=== PATIENT | male | born 1985 | race Caucasian/White ===

== ENCOUNTER 2017-02-11 16:53 | Emergency (ER) | payer OTHER ==
[2017-02-11 17:06] VITALS: BP 124/76
--- NOTE | 2017-02-11 17:11 | UC ---
Laceration HPI - HPI Summary HPI Summary: 31 YEAR OLD MALE PRESENTS WITH LEFT KNEE LACERATION SECONDARY KNEELING ON CERAMIC. - History Of Current Complaint Chief Complaint: UCLaceration Stated Complaint: KNEE LACERATION Time Seen by Provider: 02/11/17 17:07 - Allergies/Home Medications Allergies/Adverse Reactions: Allergies Allergy/AdvReac Type Severity Reaction Status Date / Time No Known Allergies Allergy Verified 02/11/17 17:02 Home Medications: Home Medications Diazepam TAB(*) [Valium TAB(*)] 10 mg PO Q8H PRN 02/11/17 [History Confirmed ] Naproxen TAB* [Naprosyn 250 mg TAB*] 500 mg PO Q8H 02/11/17 [History Confirmed 02/11/17] oxyCODONE/Acetamin 5/325 MG* [Percocet 5/325 TAB*] 1 tab PO BID PRN 02/11/17 [ History Confirmed 02/11/17] PMH/Surg Hx/FS Hx/Imm Hx - Surgical History Surgical History: Yes Surgery Procedure, Year, and Place: L knee surgeries - Social History Alcohol Use: None Substance Use Type: None Smoking Status (MU): Never Smoked Tobacco Review of Systems Constitutional: Negative Skin: Other - LEFT KNEE LACERATION Eyes: Negative ENT: Negative Respiratory: Negative Cardiovascular: Negative Gastrointestinal: Negative Genitourinary: Negative Motor: Negative Neurovascular: Negative Musculoskeletal: Negative Neurological: Negative Psychological: Negative All Other Systems Reviewed And Are Negative: Yes Physical Exam Triage Information Reviewed: Yes Vital Signs: Initial Vital Signs Temp 36.7 C 02/11/17 17:04 Pulse 73 02/11/17 17:04 Resp 12 02/11/17 17:04 BP 124/76 02/11/17 17:04 Pulse Ox 98 02/11/17 17:04 Laceration Repair - Laceration Repair 1 Description: Irregular Laceration Size After Repair: Length (cm) - 5 TO 7.5 CM Contamination/FB Removal: NO Modified For Repair: No Type Injection: Local Anesthesia Used: 1.0% Lido Cleansing Completed Via Routine Prep: Yes Closure Material: Sutures - # 7 Closure Method: Single Layer Suture Of: Skin Suture Type: Nylon - 4 Laceration Course/Dx - Differential Dx - Laceration/Wound Provider Diagnoses: LEFT KNEE LACERATION Discharge - Discharge Plan Condition: Stable Disposition: HOME Prescriptions: Sulfamethox/Trimethoprim DS* [Bactrim DS 800/160 TAB*] 1 tab PO BID #20 tab Patient Education Materials: Laceration (ED) Referrals: Deangelo STEARNS,Jose R Rai [Primary Care Provider] - 2 Days
[2017-02-11] MEDS ORDERED: Lidocaine 1% MPF* 2 ML VIAL INJ ONE (17:14)
[2017-02-11] MEDS ORDERED: Lidocaine 1% MPF* 2 ML VIAL ONE (17:29)
== END 2017-02-11 17:51 | disposition home or self-care (01) ==
LOC: UCEAST 16:53
DX: S81.012A Laceration without foreign body, left knee, initial encounter (principal); W26.8XXA Contact with other sharp object(s), not elsewhere classified, initial encounter; Y93.89 Activity, other specified; Y92.9 Unspecified place or not applicable; Y99.9 Unspecified external cause status
CPT/HCPCS: 12002; 99212; G0463